=== PATIENT | male | born 1980 | race Two or more races ===

== ENCOUNTER 2019-01-10 21:07 | Emergency (ER) | payer SELFPAY ==
[~2019-01-10] VITALS: Ht 157.5 cm; Wt 62.6 kg
[2019-01-10 21:53] VITALS: BP 139/87
== END 2019-01-11 01:20 | disposition left against medical advice (07) ==
LOC: ER 21:10
DX: S61.012A Laceration without foreign body of left thumb without damage to nail, initial encounter (principal); Z53.21 Procedure and treatment not carried out due to patient leaving prior to being seen by health care provider; X58.XXXA Exposure to other specified factors, initial encounter; Y93.89 Activity, other specified; Y99.8 Other external cause status; Y92.89 Other specified places as the place of occurrence of the external cause
CPT/HCPCS: 73140

== ENCOUNTER 2019-08-05 08:29 | Emergency (ER) | payer MEDICAID ==
[~2019-08-05] VITALS: Ht 175.3 cm; Wt 63.5 kg
[2019-08-05 08:53] VITALS: BP 120/79
== END 2019-08-05 09:52 | disposition home or self-care (01) ==
LOC: ER 08:29
DX: H10.32 Unspecified acute conjunctivitis, left eye (principal)

== ENCOUNTER 2020-05-29 11:13 | Emergency (ER) | payer MEDICAID ==
[~2020-05-29] VITALS: Ht 160 cm; Wt 63.5 kg
[2020-05-29 11:35] VITALS: BP 111/73
== END 2020-05-29 14:24 | disposition home or self-care (01) ==
LOC: ER 11:13
DX: H10.89 Other conjunctivitis (principal)